=== PATIENT | female | born 1970 | race Caucasian/White ===

== ENCOUNTER 2018-02-23 03:51 | Inpatient (IN) | payer BC, OTHER ==
[2018-02-23] MEDS: LIDOCAINE/MYLANTA 40 ML BTL PO (05:04)
[2018-02-23] MEDS: KETOROLAC 15 MG INJ IV (05:04)
[2018-02-23] MEDS: ONDANSETRON 4 MG INJ IV (05:04)
[2018-02-23] MEDS: SOD CHLORIDE 0.9% 1,000 ML IV ×3 (05:04→18:04)
[2018-02-23 05:06] LABS: WHITE BLOOD COUNT 10.7 10^3/ul (4.8-10.8)
[2018-02-23 05:06] LABS: ADD MAN DIFF? NO; BASOPHILS % 0.3 % (0.0-2.0); EOSINOPHILS # 0.1 10^3/ul (0.0-0.5); EOSINOPHILS % 1.2 % (0.0-7.0); HEMATOCRIT 39.7 % (37.0-47.0); LYMPHOCYTES # 1.5 10^3/ul (0.8-2.9); LYMPHOCYTES % 13.8 % (15.0-51.0); MEAN CORPUSCULAR HEMOGLOBIN 23.7 pg (29.0-33.0); MEAN CORPUSCULAR HGB CONC 30.2 g/dl (32.0-37.0); MEAN CORPUSCULAR VOLUME 78.5 fl (82.0-101.0); MONOCYTE # 0.5 10^3/ul (0.3-0.9); MONOCYTES % 4.8 % (0.0-11.0); NEUTROPHIL # 8.5 10^3/ul (1.6-7.5); NEUTROPHILS % 79.4 % (39.0-77.0); PLATELET COUNT 246 10^3/UL (140-415); RED BLOOD COUNT 5.06 10^6/ul (4.20-5.40); RED CELL DISTRIBUTION WIDTH 17.3 % (11.5-14.5)
[2018-02-23 05:26] LABS: ALANINE AMINOTRANSFERASE 29 IU/L (13-69); ALBUMIN 4.4 g/dl (3.3-4.9); ALBUMIN/GLOBULIN RATIO 1.25; ALKALINE PHOSPHATASE 99 IU/L (42-121); ANION GAP 19 (8-16); ASPARTATE AMINO TRANSFERASE 22 IU/L (15-46); BILIRUBIN,INDIRECT 0.2 mg/dl (0-1.1); BILIRUBIN,TOTAL 0.2 mg/dl (0.2-1.3); BLOOD UREA NITROGEN 21 mg/dl (7-20); CALCIUM 9.3 mg/dl (8.4-10.2); CARBON DIOXIDE 24 mmol/L (21-31); CHLORIDE 107 mmol/L (97-110); CREATININE 0.91 mg/dl (0.44-1.00); GLUCOSE 121 mg/dl (70-220); LIPASE 149 U/L (23-300); POTASSIUM 3.7 mmol/L (3.5-5.1); SODIUM 146 mmol/L (135-144); TOTAL PROTEIN 7.9 g/dl (6.1-8.1)
[2018-02-23 05:31] LABS: ADD UMIC YES; UR AMORPHOUS CRYSTAL FEW /HPF (NONE SEEN); UR ASCORBIC ACID NEGATIVE (NEGATIVE); UR BACTERIA FEW /HPF (NONE SEEN); UR BILIRUBIN (Dip) NEGATIVE (NEGATIVE); UR BLOOD (Dip) 2+ mg/dL (NEGATIVE); UR CLARITY CLOUDY (CLEAR); UR COLOR YELLOW (YELLOW); UR GLUCOSE (Dip) NEGATIVE (NEGATIVE); UR KETONES (Dip) NEGATIVE (NEGATIVE); UR LEUKOCYTE ESTERASE (Dip) TRACE Leu/ul (NEGATIVE); UR MUCUS FEW /HPF (NONE SEEN); UR NITRITE (Dip) NEGATIVE (NEGATIVE); UR RBC 124 /HPF (0-5); UR SPECIFIC GRAVITY (Dip) 1.013 (1.003-1.030); UR SQUAMOUS EPITHELIAL CELL MODERATE /HPF (FEW); UR TOTAL PROTEIN (Dip) NEGATIVE (NEGATIVE); UR UROBILINOGEN (Dip) NEGATIVE (NEGATIVE); UR WBC 6 /HPF (0-5)
[2018-02-23] MEDS: FENTAnyl 50 MCG/ML VIAL IV (06:25)
[2018-02-23] MEDS ORDERED: HYDROmorphONE 1 MG/ML SYG (07:29)
[2018-02-23] MEDS ORDERED: ONDANSETRON 4 MG INJ IV (07:30)
[2018-02-23] MEDS ORDERED: ACETAMINOPHEN 325 MG TAB PO (07:30)
[2018-02-23] MEDS: CEFTRIAXONE 1 GM/50 ML (PMX) 50 ML IVPB (07:31)
[2018-02-23] MEDS: HYDROmorphONE 1 MG/ML SYG IV (07:31)
[2018-02-23] MEDS ORDERED: NACL 0.9% 3 ML SYG IV (09:30)
[2018-02-23] MEDS: CEFTRIAXONE 1 GM/NS 50 ML IVPB (09:33)
[2018-02-23] MEDS: HYDROCODONE/APAP (5/325) TAB PO (09:42)
[2018-02-23 10:08] LABS: HEMOGLOBIN A1C 5.6 % (0-5.9)
[2018-02-23 10:37] LABS: AMPHETAMINE/METHAMPHETAMINE Negative (NEGATIVE); CANNABINOIDS Negative (NEGATIVE); COCAINE Negative (NEGATIVE)
[2018-02-23 10:58] LABS: BARBITURATES Negative (NEGATIVE); BENZODIAZEPINES Negative (NEGATIVE)
[2018-02-23 11:13] LABS: OPIATES Negative (NEGATIVE)
[2018-02-23] MEDS: morphine 2 MG INJ IV (12:17)
[2018-02-23] MEDS: ONDANSETRON 4 MG TAB PO (12:17)
[2018-02-23 12:45] LABS: FREE T4 (FREE THYROXINE) 1.33 ng/dl (0.64-1.79)
[2018-02-23] MEDS ORDERED: KETOROLAC 30 MG INJ IV (15:00)
[2018-02-23] MEDS: HYDROmorphONE 0.5 MG/0.5 ML SYG IV ×2 (18:04→22:14)
[2018-02-23] MEDS: POLYETHYLENE GLYCOL 17 GM PACKET PO (20:57)
[2018-02-23] MEDS: HEPARIN 5,000 UNIT/0.5 ML VIAL SC (20:59)
[2018-02-24] MEDS: SOD CHLORIDE 0.9% 1,000 ML IV ×4 (00:46→22:37)
[2018-02-24] MEDS: BISACODYL (EC) 5 MG TAB PO (05:05)
[2018-02-24] MEDS: HYDROmorphONE 0.5 MG/0.5 ML SYG IV ×4 (05:28→18:10)
[2018-02-24 05:55] LABS: ADD MAN DIFF? NO
[2018-02-24 06:12] LABS: BASOPHILS % 0.2 % (0.0-2.0); EOSINOPHILS # 0.1 10^3/ul (0.0-0.5); EOSINOPHILS % 0.7 % (0.0-7.0); HEMATOCRIT 34.3 % (37.0-47.0); HEMOGLOBIN 10.5 g/dl (12.0-16.0); LYMPHOCYTES # 1.5 10^3/ul (0.8-2.9); LYMPHOCYTES % 17.7 % (15.0-51.0); MEAN CORPUSCULAR HEMOGLOBIN 24.1 pg (29.0-33.0); MEAN CORPUSCULAR HGB CONC 30.6 g/dl (32.0-37.0); MEAN CORPUSCULAR VOLUME 78.7 fl (82.0-101.0); MEAN PLATELET VOLUME 12.8 fl (7.4-10.4); MONOCYTE # 0.7 10^3/ul (0.3-0.9); MONOCYTES % 7.9 % (0.0-11.0); NEUTROPHIL # 6.3 10^3/ul (1.6-7.5); NEUTROPHILS % 73.2 % (39.0-77.0); PLATELET COUNT 193 10^3/UL (140-415); RED BLOOD COUNT 4.36 10^6/ul (4.20-5.40); RED CELL DISTRIBUTION WIDTH 17.6 % (11.5-14.5)
[2018-02-24 06:12] LABS: WHITE BLOOD COUNT 8.7 10^3/ul (4.8-10.8)
[2018-02-24 06:22] LABS: PHOSPHORUS 2.9 mg/dl (2.5-4.9)
[2018-02-24 06:26] LABS: CHOLESTEROL 132 mg/dl (100-200)
[2018-02-24 06:26] LABS: CHOL/HDL RATIO 2.7 RATIO; HDL CHOLESTEROL 48 mg/dl (34-88); LDL CHOLESTEROL,CALCULATED 61 mg/dl; TRIGLYCERIDES 113 mg/dl (0-149)
[2018-02-24 06:30] LABS: ANION GAP 9 (8-16); BLOOD UREA NITROGEN 11 mg/dl (7-20); CALCIUM 8.6 mg/dl (8.4-10.2); CARBON DIOXIDE 25 mmol/L (21-31); CHLORIDE 110 mmol/L (97-110); CREATININE 0.89 mg/dl (0.44-1.00); GLUCOSE 102 mg/dl (70-220); POTASSIUM 3.7 mmol/L (3.5-5.1); SODIUM 140 mmol/L (135-144)
[2018-02-24] MEDS ORDERED: CEFAZOLIN 1 GM INJ (07:00)
[2018-02-24] MEDS: HEPARIN 5,000 UNIT/0.5 ML VIAL SC ×2 (09:00→22:38)
[2018-02-24] MEDS: POLYETHYLENE GLYCOL 17 GM PACKET PO ×2 (09:00→22:37)
[2018-02-24] MEDS: ACETAMINOPHEN 325 MG TAB PO (09:21)
[2018-02-24 10:10] LABS: IRON 20 ug/dl (35-150)
[2018-02-24 10:20] LABS: % IRON SATURATION 6 % SAT (22-52); TOTAL IRON BINDING CAPACITY 361 ug/dl (241-421)
[2018-02-24 10:47] LABS: FERRITIN 21.5 ng/ml (6.2-137.0)
[2018-02-24] MEDS: CEFTRIAXONE 2 GM/50 ML (PMX) 50 ML IVPB (12:48)
[2018-02-24] MEDS ORDERED: HYDROmorphONE 1 MG/5 ML IV SYRINGE IV ×2 (19:00)
[2018-02-24] MEDS ORDERED: ONDANSETRON 4 MG INJ IV (19:00)
[2018-02-24] MEDS ORDERED: PROPOFOL 20 ML (19:14)
[2018-02-24] MEDS ORDERED: MIDAZOLAM 1 MG/ML 2 ML INJ (19:14)
[2018-02-24] MEDS ORDERED: LIDOCAINE 1% (MDV) 20 ML INJ (19:14)
[2018-02-24] MEDS ORDERED: FENTAnyl 50 MCG/ML VIAL (19:14)
[2018-02-24] MEDS ORDERED: ROCURONIUM 50 MG INJ (19:14)
[2018-02-24] MEDS ORDERED: SUGAMMADEX SODIUM 200 MG/2 ML VIAL IV (20:27)
[2018-02-24] MEDS ORDERED: ONDANSETRON 4 MG INJ (20:27)
[2018-02-24] MEDS ORDERED: DEXAMETHASONE 4 MG/ML 1 ML INJ (20:27)
[2018-02-24] MEDS ORDERED: HYDROCODONE/APAP (5/325) TAB PO (21:00)
[2018-02-25 05:40] LABS: ADD MAN DIFF? NO
[2018-02-25 05:48] LABS: ABNORMAL IP MESSAGE 1; BASOPHILS % 0.1 % (0.0-2.0); HEMATOCRIT 35.8 % (37.0-47.0); HEMOGLOBIN 11.2 g/dl (12.0-16.0); LYMPHOCYTES # 0.7 10^3/ul (0.8-2.9); MEAN CORPUSCULAR HEMOGLOBIN 24.3 pg (29.0-33.0); MEAN CORPUSCULAR HGB CONC 31.3 g/dl (32.0-37.0); MEAN CORPUSCULAR VOLUME 77.8 fl (82.0-101.0); MEAN PLATELET VOLUME 13.1 fl (7.4-10.4); MONOCYTE # 0.2 10^3/ul (0.3-0.9); MONOCYTES % 1.9 % (0.0-11.0); NEUTROPHILS % 90.1 % (39.0-77.0); PLATELET COUNT 212 10^3/UL (140-415); RED CELL DISTRIBUTION WIDTH 17.3 % (11.5-14.5)
[2018-02-25 06:31] LABS: MAGNESIUM 2.1 mg/dl (1.7-2.5)
[2018-02-25 06:31] LABS: PHOSPHORUS 3.3 mg/dl (2.5-4.9)
[2018-02-25 06:51] LABS: ANION GAP 13 (8-16); BLOOD UREA NITROGEN 10 mg/dl (7-20); CARBON DIOXIDE 23 mmol/L (21-31); CHLORIDE 111 mmol/L (97-110); CREATININE 0.75 mg/dl (0.44-1.00); GLUCOSE 119 mg/dl (70-220); POTASSIUM 3.9 mmol/L (3.5-5.1); SODIUM 143 mmol/L (135-144)
[2018-02-25 07:07] LABS: POSITIVE DIFF @See below
[2018-02-25] MEDS: SOD CHLORIDE 0.9% 1,000 ML IV (07:14)
[2018-02-25] MEDS: POLYETHYLENE GLYCOL 17 GM PACKET PO (08:45)
[2018-02-25] MEDS: HEPARIN 5,000 UNIT/0.5 ML VIAL SC (08:49)
[2018-02-25] MEDS: CEFTRIAXONE 2 GM/50 ML (PMX) 50 ML IVPB (10:17)
[2018-02-25] MEDS: BISACODYL (EC) 5 MG TAB PO (11:25)
[2018-02-25] MEDS: NA PHOSPHATE/BIPHOS 133 ML ENEMA PR (14:11)
== END 2018-02-25 16:45 | disposition home or self-care (01) | DRG 669 ==
LOC: E/R 03:51 → MS2 07:15
PROVIDERS: Family Medicine
PROC: 0TC68ZZ Extirpation of Matter from Right Ureter, Via Natural or Artificial Opening Endoscopic (ICD-10-PCS; principal; 2018-02-24 19:20)
PROC: 0T768DZ Dilation of Right Ureter with Intraluminal Device, Via Natural or Artificial Opening Endoscopic (ICD-10-PCS; 2018-02-24 19:20)
DX: N13.2 Hydronephrosis with renal and ureteral calculous obstruction (principal); E66.9 Obesity, unspecified; K59.00 Constipation, unspecified; E86.0 Dehydration; R31.9 Hematuria, unspecified; Z68.38 Body mass index [BMI] 38.0-38.9, adult
CPT/HCPCS: 36415; 71045; 74018; 74176; 74430; 80048; 80053; 80061; 80307; 81001; 81025; 82728; 83036; 83540; 83690; 83735; 84100; 84439; 84443; 85025; 87086; 93005; 96361; 96374; 96375; 99285-25